=== PATIENT | female | born 1990 | race Caucasian/White ===

== ENCOUNTER 2016-12-11 13:23 | Emergency (ER) | payer MEDICAID ==
[2016-12-11] MEDS ORDERED: ALPRAZolam 0.25 MG TABLET PO STA (13:51)
[2016-12-11] MEDS ORDERED: ALPRAZolam 0.25 MG TABLET PO ONE (13:56)
== END 2016-12-11 14:40 | disposition home or self-care (01) ==
DX: F15.980 Other stimulant use, unspecified with stimulant-induced anxiety disorder (principal); F17.200 Nicotine dependence, unspecified, uncomplicated
CPT/HCPCS: 80306; 81001; 81025; 99283; A9270